=== PATIENT | male | born 1995 | race Caucasian/White ===

== ENCOUNTER 2017-08-04 19:57 | Emergency (ER) | payer OTHER, BC ==
[2017-08-04] MEDS ORDERED: predniSONE 20 MG Tab PO ONE (19:58)
[2017-08-04] MEDS ORDERED: Cefuroxime 250 MG Tab PO ONE (19:58)
[2017-08-04 20:04] VITALS: BP 138/76
[2017-08-04] MEDS ORDERED: Acetaminophen 325 MG Tab ONE (20:21)
[2017-08-04 20:32] LABS: CHLORIDE,CL 100 mEq/L (98-106); SODIUM,NA 139 mEq/L (136-145)
[2017-08-04] MEDS ORDERED: Take Home: Cefuroxime 250 MG Tab, 2 Tab Pack PO ONE ×2 (20:57→21:01)
[2017-08-04] MEDS ORDERED: Lidocaine 1% 20 ML MDV ONE (20:59)
[2017-08-04] MEDS ORDERED: Cefuroxime 250 MG Tab ONE (21:00)
[2017-08-04] MEDS ORDERED: cefTRIAXone 1 GM Vial IM ONE (21:02)
[2017-08-04] MEDS ORDERED: methylPREDNISolone Acetate 80 MG/ML SDV IM ONE (21:03)
[2017-08-04] MEDS ORDERED: Take Home: predniSONE 20 MG, 2 Tab Pack PO ONE (21:04)
--- NOTE | 2017-08-04 21:12 | EDM.PDOC ---
ED HPI GENERAL MEDICAL PROBLEM - General Chief Complaint: General Stated Complaint: sinus complaints, fever, cough Time Seen by Provider: 08/04/17 20:50 - History of Present Illness INITIAL COMMENTS - FREE TEXT/NARRATIVE: Daniel is a 21 year old male who presents to the ED with complaints of cold symptoms for the last week. He reports he has had nasal congestion, bilateral ear pain, headache, and low grade fever. He reports he has been having intermittent cold symptoms while living in [place], but they just keep telling him he has allergies. He reports he is heading back to [place] on 08/06/2016 and "needs to feel better." Denies any chest pain, shortness of breath. Does report he has been coughing. Has not been coughing anything up. Has not taken anything OTC. Onset Date: 07/28/17 Duration: Getting Worse Location: Reports: Head Quality: Reports: Ache, Pressure Severity: Moderate Associated Symptoms: Reports: Cough, Fever/Chills, Headaches, Loss of Appetite. Denies: Confusion, Chest Pain, cough w sputum, Malaise, Nausea/Vomiting, Rash , Seizure, Shortness of Breath, Syncope, Weakness Treatments INVESTMENT DIRECTOR: Reports: Acetaminophen, NSAIDS Headache Pain Score (Numeric/FACES): 7 - Related Data Allergies Allergy/AdvReac Type Severity Reaction Status Date / Time No Known Allergies Allergy Verified 08/04/17 20:04 Home Meds: Home Meds . [No Known Home Meds] 08/04/17 [History] Past Medical History - Past Health History Medical/Surgical History: Denies Medical/Surgical History - Infectious Disease History Infectious Disease History: Reports: MRSA Social & Family History - Tobacco Use Smoking Status *Q: Never Smoker Second Hand Smoke Exposure: No - Alcohol Use Days Per Week of Alcohol Use: 0 - Recreational Drug Use Recreational Drug Use: No ED ROS GENERAL - Review of Systems Review Of Systems: ROS reveals no pertinent complaints other than HPI. Constitutional: Reports: Fever, Chills, Fatigue HEENT: Reports: Ear Pain, Rhinitis, Sinus Problem, Throat Pain. Denies: Dental Pain Respiratory: Reports: Cough. Denies: Shortness of Breath, Wheezing, Pleuritic Chest Pain, Sputum, Hemoptysis Cardiovascular: Reports: No Symptoms Endocrine: Reports: No Symptoms GI/Abdominal: Reports: No Symptoms : Reports: No Symptoms Musculoskeletal: Reports: No Symptoms Skin: Reports: No Symptoms Neurological: Reports: Headache Psychiatric: Reports: No Symptoms Hematologic/Lymphatic: Reports: No Symptoms Immunologic: Reports: No Symptoms ED EXAM, GENERAL - Physical Exam Exam: See Below Exam Limited By: No Limitations General Appearance: Alert, WD/WN, No Apparent Distress Eye Exam: Bilateral Eye: Normal Fundi, Normal Inspection, PERRL Ears: Normal External Exam, Normal Canal, Hearing Grossly Normal, Normal TMs Ear Exam: Bilateral Ear: Auricle Normal, Canal Normal, TM normal Nose: Normal Inspection, Normal Mucosa, No Blood Throat/Mouth: Normal Inspection, Normal Lips, Normal Teeth, Normal Gums, Normal Voice, No Airway Compromise, Inflammation, Other (pharynx erythematous). No: Normal Oropharynx Head: Atraumatic, Normocephalic Neck: Normal Inspection, Supple, Non-Tender, Full Range of Motion Respiratory/Chest: No Respiratory Distress, Lungs Clear, Normal Breath Sounds, No Accessory Muscle Use, Chest Non-Tender Cardiovascular: Normal Peripheral Pulses, Regular Rate, Rhythm, No Edema, No Gallop, No JVD, No Murmur, No Rub Course - Vital Signs Last Recorded V/S: Last Vital Signs Temp 99.0 F 08/04/17 19:58 Pulse 97 08/04/17 19:58 Resp 20 08/04/17 19:58 BP 138/76 08/04/17 19:58 Pulse Ox 97 08/04/17 19:58 - Orders/Labs/Meds Labs: Laboratory Tests 08/04/17 08/04/17 Range/Units 20:20 20:20 WBC 9.7 (5.0-10.0) 10^3/uL RBC 4.99 (4.50-6.00) 10^6/uL Hgb 15.3 (14.0-18.0) g/dL Hct 43.8 (40.0-54.0) % MCV 87.8 (82.0-94.0) fL MCH 30.7 (27.0-32.0) pg MCHC 34.9 (33.0-38.0) g/dL RDW Coeff of Farhana 13.1 (11.0-15.0) % Plt Count 218 (150-400) 10^3/uL Neut % (Auto) 83.1 (35-85) % Lymph % (Auto) 7.0 L (10-55) % Mora % (Auto) 9.6 (0-16) % Eos % (Auto) 0.1 (0-5) % Baso % (Auto) 0.2 (0-3) % Neut # (Auto) 8.09 H (1.80-7.00) 10^3/uL Lymph # (Auto) 0.68 L (1.00-4.80) 10^3/uL Mora # (Auto) 0.93 H (0.00-0.80) 10^3/uL Eos # (Auto) 0.01 (0.00-0.45) 10^3/uL Baso # (Auto) 0.02 10^3/uL Sodium 139 (136-145) mEq/L Potassium 3.8 D (3.5-5.0) mEq/L Chloride 100 (98-106) mEq/L Carbon Dioxide 29 (21-32) mmol/L BUN 15 (7-18) mg/dL Creatinine 1.1 (0.7-1.3) mg/dL Est Cr Clr Drug Dosing 111.53 mL/min Estimated GFR (MDRD) > 60 (>=60) mL/min Glucose 98 (75-99) mg/dL Calcium 9.3 (8.4-10.1) mg/dL C-Reactive Protein 0.7 (0.2-0.8) mg/dL Meds: Medications Discontinued Medications Generic Name Dose Route Start Last Admin Trade Name Freq PRN Reason Stop Dose Admin Acetaminophen Confirm 08/04/17 20:21 08/04/17 20:33 Tylenol Administered 08/04/17 20:22 Not Given Dose 325 mg .ROUTE .STK-MED ONE Ceftriaxone Sodium 1 gm 08/04/17 21:02 08/04/17 21:22 Rocephin IM 08/04/17 21:03 1 gm ONETIME ONE Administration Cefuroxime Axetil 3 packet 08/04/17 20:57 08/04/17 21:18 Take Home: Cefuroxime 250 Mg, 2 Tab Pack PO 08/04/17 20:58 2 packet ONETIME ONE Administration Cefuroxime Axetil 2 packet 08/04/17 21:01 08/04/17 21:18 Take Home: Cefuroxime 250 Mg, 2 Tab Pack PO 08/04/17 21:02 2 packet ONETIME ONE Administration Cefuroxime Axetil Confirm 08/04/17 21:00 08/04/17 21:19 Ceftin Administered 08/04/17 21:01 500 mg Dose Administration 500 mg .ROUTE .STK-MED ONE Lidocaine HCl Confirm 08/04/17 20:59 08/04/17 21:22 Xylocaine 1% Administered 08/04/17 21:00 2.1 ml Dose Administration 20 ml .ROUTE .STK-MED ONE Methylprednisolone Acetate 80 mg 08/04/17 21:03 08/04/17 21:19 Depo-Medrol IM 08/04/17 21:04 80 mg ONETIME ONE Administration Prednisone 2 packet 08/04/17 21:04 08/04/17 21:25 Take Home: Prednisone 20 Mg, 2 Tab Pack PO 08/04/17 21:05 2 packet ONETIME ONE Administration - Re-Assessments/Exams Free Text/Narrative Re-Assessment/Exam: Discussed lab findings with patient and mother. Departure - Departure Time of Disposition: 21:09 Disposition: Home, Self-Care 01 Condition: Good Clinical Impression: Acute sinusitis Qualifiers: Sinusitis location: unspecified location Recurrence: non-recurrent Qualified Code(s): J01.90 - Acute sinusitis, unspecified - Discharge Information Instructions: Sinusitis, Adult, [id number] Referrals: PCP,Eugenio [Primary Care Provider] - Forms: ED Department Discharge Additional Instructions: Ceftin twice daily x 5 days. Can start tomorrow. Prednisone x 4 days. Start tomorrow. Recommend starting Flonase daily. Push fluids Rest as much as possible Follow up with PCP in [place] if symptoms worsen or do not improve
== END 2017-08-04 21:32 | disposition home or self-care (01) ==
LOC: CC.ED 19:57
DX: J01.90 Acute sinusitis, unspecified (principal)
CPT/HCPCS: 36415; 80048; 85025; 86140; 87804; 96372; 99283; A9270; J0696; J1040

== ENCOUNTER 2024-01-02 20:31 | Emergency (ER) | payer BC, OTHER ==
[2024-01-02] MEDS: Lidocaine 1% 5 ML VIAL INJECT ONE (20:40)
[2024-01-02 20:50] VITALS: BP 135/98; PULSE 68
[2024-01-02] MEDS: Bacitracin/Neomycin/Polymyxin B Oint 0.9 GM U/D Packet TOP ONE (21:00)
== END 2024-01-02 21:16 | disposition home or self-care (01) ==
LOC: CC.ED 20:31
DX: S61.213A Laceration without foreign body of left middle finger without damage to nail, initial encounter (principal); W26.0XXA Contact with knife, initial encounter
CPT/HCPCS: 12001; 99282; A9270; 99283; J3490